=== PATIENT | female | born 1960 | race Caucasian/White ===

== ENCOUNTER 2016-12-09 11:46 | Inpatient (IN) | payer SELFPAY ==
[~2016-12-09] VITALS: Ht 162.6 cm; Wt 63.1 kg
[~2016-12-09 11:46] MED LIST: COLC1TAB7 PO; INDO50CA PO
[2016-12-09 11:57] VITALS: BP 151/101; PULSE 98; RESP 18; TEMP 98.5; O2SAT 99
[2016-12-09] MEDS ORDERED: MORPHINE SULFATE 8 MG/ML INJ IM ONE (13:00)
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
[2016-12-09] MEDS ORDERED: ACETAMINOPHEN 325 MG TAB PO PRN (14:30)
[2016-12-09] MEDS ORDERED: SODIUM CHLORIDE 0.9% FLUSH 5 ML FLUSH FLUSH PRN (14:30)
[2016-12-09] MEDS ORDERED: ONDANSETRON HCL 4 MG/2 ML VIAL IVP PRN (14:30)
[2016-12-09] MEDS ORDERED: TEMAZEPAM 15 MG CAP PO PRN (14:30)
[2016-12-09] MEDS ORDERED: MAGNESIUM HYDROXIDE SUSP 30 ML CUP PO PRN (14:30)
[2016-12-09] MEDS ORDERED: NALOXONE HCL 0.4 MG/ML AMP IV PRN (14:30)
[2016-12-09] MEDS: MORPHINE SULFATE 4 MG/ML INJ IV PRN ×3 (15:13→22:30)
[2016-12-09 15:49] VITALS: BP 155/87; PULSE 92; RESP 20; O2SAT 98
[2016-12-09] MEDS: ACETAMINOPHEN/HYDROcodone 325 MG/5 MG TAB PO PRN (16:12)
[2016-12-09 18:26] VITALS: BP 150/81; PULSE 108; O2SAT 98
[2016-12-09 21:23] VITALS: BP 131/81; PULSE 85; RESP 18; TEMP 97.1; O2SAT 97
[2016-12-09] MEDS: DOCUSATE SODIUM 100 MG CAP PO SCH (22:30)
[2016-12-09] MEDS: SODIUM CHLORIDE 0.9% FLUSH 5 ML FLUSH FLUSH SCH (22:30)
--- NOTE | 2016-12-09 22:42 | RADRPT ---
EXAM DATE/TIME: 12/09/2016 21:36 [facility] COMPARISON: No previous studies available for comparison. INDICATIONS : Evaluate right wrist fracture. RADIATION DOSE: 45.07 CTDIvol (mGy) MEDICAL HISTORY : None SURGICAL HISTORY : None. ENCOUNTER: Initial ACUITY: 1 day PAIN SCALE: 4/10 LOCATION: wrist TECHNIQUE: Volumetric scanning of the wrist was performed. Using automated exposure control and adjustment of t he mA and/or kV according to patient size, radiation dose was kept as low as reasonably achievable to obtain optimal diagnostic quality images. FINDINGS: Extremely comminuted fractures seen of the distal right radius. There is dorsal and central predomina nt impaction with generally mild dorsal tilt of the articular surface. There is an approximately 11 x 17 mm area of concavity/step-off measuring up to 7 mm depressed of the central dorsal articular surf kodi, series 703 image 31 and series 701 image 18. Comminuted ulnar styloid fracture and most of the fracture fragments have mild lateral displacem ent. Carpal bones are intact and reasonably aligned. The CONCLUSION: 1. Severely comminuted punch type intra-articular fracture of the distal radius. Approximately 11 x 17 mm area of the articular surface has up to 7 mm of depression/step-off. There is also mild, gen eralized dorsal tilt of the distal articular surface. 2. Comminuted and mildly displaced ulnar styloid fracture as well. 3. Carpal bones are intact. Jaydon Larios MD on December 09, 2016 at 22:39 Board Certified Radiologist. This report was verified electronically.
[2016-12-10] VITALS: BP 123/90; PULSE 87; RESP 18; TEMP 98; O2SAT 96
[2016-12-10] MEDS: ACETAMINOPHEN/HYDROcodone 325 MG/5 MG TAB PO PRN ×2 (00:16→05:33)
[2016-12-10] MEDS ORDERED: SODIUM CHLORID 0.9% 500 ML IV SCH (01:00)
[2016-12-10] MEDS ORDERED: LACTATED RINGER'S 1000 ML IV SCH (01:00)
[2016-12-10] MEDS ORDERED: INSULIN HUMAN REGULAR 1,000 UNITS/10 ML VIAL SQ PRN (01:00)
[2016-12-10] MEDS ORDERED: METOPROLOL TARTRATE 25 MG TAB PO PRN (01:00)
[2016-12-10] MEDS: MORPHINE SULFATE 4 MG/ML INJ IV PRN (02:37)
[2016-12-10 04:17] VITALS: BP 128/79; PULSE 90; RESP 18; TEMP 97.5; O2SAT 96
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
[2016-12-10] MEDS ORDERED: HYDR-3288 PO (06:37)
[2016-12-10] MEDS ORDERED: BUPIVACAINE/EPINEPHRINE 0.25% PF 30 ML VIAL ONE (07:05)
[2016-12-10] MEDS ORDERED: SODIUM CHLOR 0.9% 250 ML INJ 250 ML ONE (07:05)
[2016-12-10] MEDS ORDERED: GENTAMICIN SULFATE 80 MG/2 ML VIAL ONE (07:05)
[2016-12-10] MEDS ORDERED: VANCOMYCIN HCL 1000 MG VIAL ONE (07:05)
[2016-12-10] MEDS ORDERED: MIDAZOLAM HCL 2 MG/2 ML VIAL ONE (07:12)
[2016-12-10] MEDS ORDERED: ACETAMINOPHEN 1000 MG/100 ML VIAL IV ONE (07:12)
[2016-12-10] MEDS ORDERED: ceFAZolin INJ 1,000 MG VIAL IV ONE (07:34)
[2016-12-10] MEDS ORDERED: PROPOFOL 200 MG/20 ML AMP IV ONE (07:40)
[2016-12-10] MEDS ORDERED: ONDANSETRON HCL 4 MG/2 ML VIAL IV PUSH ONE (07:40)
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
--- NOTE | 2016-12-10 08:44 | PD.OP ---
cc: Ronal Genao MD Operative Report Date of Surgery: Dec 10, 2016 Preoperative Diagnosis: Comminuted intra-articular right distal radius fracture Postoperative Diagnosis: Procedure: Open reduction internal fixation right distal radius with allograft bone grafting Anesthesia: Gen. Surgeon: Ronal Genao Ship Wirer(s): Marco Antony PA-C The surgical procedure was assisted by my physician energy assistant. My P.A. presence was necessary throughout this case for the manipulation and positioning of the surgical extremity. My P.A. was assisting me throughout the duration of this procedure. The skill set of a physician energy assistant was medically necessary to complete this procedure. During the surgical case the surgical scrub technologist was working at the back table and the physician energy assistant was directly assisting me. Operation and Findings: Patient was seen and evaluated preoperatively and found to have a displaced comminuted intra-articular distal radius fracture. Informed consent was obtained after detailed discussion of risk and benefits including bleeding, infection, injury to arteries, nerves, and blood vessels, weakness and numbness of hand, and tendon rupture. Informed consent was obtained. Patient received IV antibiotics prior to incision. Timeout procedure was performed. Operative extremity was prepped with alcohol followed by Hibiclens and draped usual sterile fashion. A standard dorsal approach to the distal radius was utilized. A 3 inch incision was made over the dorsal aspect of the distal radius. A dorsal approach was used because of the dorsal comminution and intra-articular depression. Tendon sheath of the fourth dorsal compartment was opened. The floor of the tendon sheath was now elevated to expose the distal radius. The fracture site was now visualized. The fracture did have intra-articular comminution with depression. Traction was applied. The articular surface was reduced. The articular surface fragments were elevated using a small elevator. Additional allograft bone graft was placed underneath the articular surface to help keep it elevated. Fracture fragments were manipulated to achieve excellent reduction. K wires were used to hold provisional fixation. Fluoroscopy confirmed appropriate alignment of fracture. 2 Synthes dorsal variable angle distal radius plates were selected. Plates were provisionally fixed to bone with K wires. 2.7 and 2.4 cortical screws were used to compress plate to bone. Fluoroscopy confirmed appropriate alignment of fracture with well-placed hardware. Multiple 2.4 locking screws were now placed distally. Screws were predrilled and measured for appropriate length. Additional screws were placed into the shaft. K wires were removed. Final fluoroscopy revealed excellent of fracture with well-placed hardware. The wound was thoroughly irrigated with sterile saline. Subcutaneous tissue was closed with 3-0 Vicryl and skin was closed with 3-0 nylon. Sterile dressings were applied with Xeroform, 4 x 4, soft roll, and a well padded splint. Patient was awakened and transferred to recovery room in stable condition Ronal Genao MD Dec 10, 2016 08:44
[2016-12-10] MEDS ORDERED: ACETAMINOPHEN/HYDROcodone 325 MG/7.5 MG TAB PO PRN ×2 (08:45)
[2016-12-10] MEDS ORDERED: MORPHINE SULFATE 4 MG/ML INJ IV PUSH PRN (08:45)
[2016-12-10] MEDS ORDERED: DO NOT ADM ANY ANTICOAGULANT DRUGS XX PRN (09:00)
[2016-12-10] MEDS: SODIUM CHLORIDE 0.9% FLUSH 5 ML FLUSH FLUSH SCH (09:00)
[2016-12-10] MEDS: DOCUSATE SODIUM 100 MG CAP PO SCH (09:00)
[2016-12-10] MEDS ORDERED: fentaNYL CITRATE 250 MCG/5 ML AMP ONE (09:13)
[2016-12-10] MEDS ORDERED: *ONDANSETRON 4 MG VIAL PERIprocedural Use ONLY ONE (09:41)
[2016-12-10 10:15] VITALS: BP 158/85; PULSE 84; RESP 18; TEMP 96.4; O2SAT 95
[2016-12-10 11:21] LABS: BASOPHIL # 0.1 TH/MM3 (0-0.2); BASOPHIL % 0.4 % (0.0-2.0); EOSINOPHIL % 0.2 % (0.0-4.0); HEMATOCRIT 48.4 % (35.0-46.0); HEMO FLAGS DIFF FINAL; LYMPH % 7.4 % (9.0-44.0); LYMPHOCYTE # 1.2 TH/MM3 (1.0-4.8); MEAN CELL VOLUME 95.4 FL (80.0-100.0); MEAN CORPUSCULAR HEMOGLOBIN 32.2 PG (27.0-34.0); MEAN CORPUSCULAR HGB CONC 33.8 % (32.0-36.0); MONO % 1.5 % (0.0-8.0); NEUT % 90.5 % (16.0-70.0); PLATELET COUNT 269 TH/MM3 (150-450); RED BLOOD COUNT 5.07 MIL/MM3 (4.00-5.30); RED CELL DISTRIBUTION WIDTH 13.7 % (11.6-17.2); WHITE BLOOD COUNT 15.5 TH/MM3 (4.0-11.0)
[2016-12-10 11:26] LABS: PROTHROMBIN TIME - PATIENT 10.8 SEC (9.8-11.6)
[2016-12-10 11:45] VITALS: O2SAT 95
[2016-12-10 12:00] VITALS: BP 128/75; PULSE 83; RESP 18; TEMP 96; O2SAT 94
--- NOTE | 2016-12-10 13:44 | EKG ---
Date Performed: 12/10/2016 Time Performed: 05:26:20 PTAGE: 55 years EKG: Sinus rhythm Lateral ST changes are nonspecific Borderline ECG PREVIOUS TRACING : 12/06/2014 15.53 Since previous tracing, no significant change noted DOCTOR: Lani Mayo Interpretating Date/Time 12/10/2016 13:36:01
--- NOTE | 2016-12-10 14:05 | RADRPT ---
EXAM DATE/TIME: 12/10/2016 08:32 [facility] COMPARISON: No previous studies available for comparison. INDICATIONS : ORIF right wrist. MEDICAL HISTORY : None. SURGICAL HISTORY : None. ENCOUNTER: Subsequent ACUITY: 2 days PAIN SCORE: Non-responsive. LOCATION: Right distal radius. FINDINGS: 3 intraoperative spot images of the right wrist. 2 malleable internal fixation plates identified at t he dorsal aspect of the distal radius with multiple transfixing screws. Alignment is near-anatomic. CONCLUSION: 3 intraoperative images showing distal radius fracture with internal fixation hardware in place. Miguel Donato MD on December 10, 2016 at 13:59 Board Certified Radiologist. This report was verified electronically.
--- NOTE | 2016-12-10 14:10 | PD.ORT.PN ---
Subjective Subjective Remarks s/p ORIF wrist POD 0 doing well pain controlled Objective Vitals Vital Signs Date Time Temp Pulse Resp B/P Pulse Ox O2 Delivery O2 Flow Rate FiO2 12/10/16 11:45 95 21 12/10/16 10:15 96.4 84 18 158/85 95 12/10/16 10:00 98.2 85 15 155/84 97 Nasal Cannula 2 12/10/16 09:45 87 15 157/90 94 Nasal Cannula 3 12/10/16 09:30 87 15 158/87 94 Nasal Cannula 3 12/10/16 09:15 85 15 163/92 97 Nasal Cannula 3 12/10/16 09:05 97.4 88 14 169/98 94 Nasal Cannula 3 12/10/16 04:17 97.5 90 18 128/79 96 12/10/16 00:00 98.0 87 18 123/90 96 12/09/16 21:23 97.1 85 18 131/81 97 12/09/16 18:26 108 150/81 98 Room Air 12/09/16 15:49 92 20 155/87 98 Room Air I/O 12/09/16 12/09/16 12/09/16 12/10/16 12/10/16 12/10/16 07:00 15:00 23:00 07:00 15:00 23:00 Intake Total 240 ml 700 ml Output Total 30 ml Balance 240 ml 670 ml Intake Oral 240 ml IV Total 100 ml Other 600 ml Output Urine Total 0 ml Estimated Blood Loss 30 ml # Voids 2 Result Diagram: 12/10/16 1107 Other Results Laboratory Tests Test 12/10/16 11:07 Prothrombin Time 10.8 SEC (9.8-11.6) Prothromb Time International 1.0 RATIO Ratio Imaging Last Impressions Wrist X-Ray 12/09/16 0000 Signed Impressions: Service Date/Time: December 12:22 - CONCLUSION: 1. Comminuted intra-articular distal radius fracture with depression of the articular cortex. 2. Ulnar styloid fracture. Miguel Donato MD Upper Extremity CT 12/09/16 0000 Signed Impressions: Service Date/Time: December 21:36 - CONCLUSION: 1. Severely comminuted punch type intra-articular fracture of the distal radius. Approximately 11 x 17 mm area of the articular surface has up to 7 mm of depression/step-off. There is also mild, generalized dorsal tilt of the distal articular surface. 2. Comminuted and mildly displaced ulnar styloid fracture as well. 3. Carpal bones are intact. Jaydon Larios MD Objective Remarks Right upper extremity: No pain with shoulder motion. Splint intact. Distally intact sensation in all fingers. She is able to fully extend and can flex her fingers limited by the splint. She has good capillary refills Assessment & Plan Assessment and Plan 1) Comminuted right distal radius fracture s/p ORIF - POD 0 NWB maintain splint DC home today f/u terry or carlos alberto in 2 weeks Ulises Gomez Dec 10, 2016 14:10
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
== END 2016-12-10 14:44 | disposition home or self-care (01) | DRG 512 ==
LOC: PHEFT 11:46 → PHEDA 14:30 → N06B 21:04
PROVIDERS: ADMIT Hospitalist; ATTEND Hospitalist
PROC: 0PUH07Z Supplement Right Radius with Autologous Tissue Substitute, Open Approach (ICD-10-PCS; 2016-12-10)
PROC: 0PSH04Z Reposition Right Radius with Internal Fixation Device, Open Approach (ICD-10-PCS; principal; 2016-12-10 07:16)
DX: S52.571A Other intraarticular fracture of lower end of right radius, initial encounter for closed fracture (principal); I50.9 Heart failure, unspecified; S52.611A Displaced fracture of right ulna styloid process, initial encounter for closed fracture; F17.210 Nicotine dependence, cigarettes, uncomplicated; V29.88XA Motorcycle rider (driver) (passenger) injured in other specified transport accidents, initial encounter; Y92.410 Unspecified street and highway as the place of occurrence of the external cause
CPT/HCPCS: 73100; 73110; 73200; 76000; 85025; 85610; 93005; 96372; C1713; J0131; J0690; J1580; J2250; J2270; J2405; J3010; J3370; J7050; J7120